=== PATIENT | female | born 1980 | race Caucasian/White ===

== ENCOUNTER → 2020-01-07 | Day surgery (SDC) | payer OTHER ==
[~2020-01-07] MED LIST: ALL DAY ALLERGY10 M3 PO; BENTYL 20 MG TA20 M1 PO; FLOVENT HFA 4444 MCG INH; LISINOPRIL10 MG PO; METFORMIN HCL500 M3 PO; PROBIOTIC1 EAC7 PO; SINGULAIR 10 MG10 M1 PO; TOPAMAX 25 MG T25 MG PO
--- NOTE | ~2020-01-07 | PROC ---
[address] [address] PROCEDURE REPORT Name: KATHERINE RASCON Room: [facility]#: [id number] Admission: 01/07/20 Attend Phys: Ayush Adan MD Discharge: Date of : 78 Report #: [id number] THIS REPORT FOR: //name// cc: Brigida Virk Ann FNPC ~ THIS REPORT FOR: //name// For GI report, please see Provation report in Perceptive 7 content. By: [facility] Staff GREGORIA /BLAIR
[2020-01-07 08:35] LABS: HEMATOCRIT 42.4 % (37.0-47.0); HEMOGLOBIN 14.6 gm/dL (12.0-15.0)
--- NOTE | 2020-01-07 12:52 | EKG ---
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1980 Requested By: Ayush Adan Order Number: [id number] Reading MD: Conrad Crowley Measurements Intervals [place] Rate: 101 P: 36 GA: 118 QRS: 16 QRSD: 89 T: 1 QT: 367 QTc: 476 Interpretive Statements Sinus tachycardia Borderline T abnormalities, inferior leads Baseline wander in lead(s) I,II,aVR No previous ECG available for comparison Electronically Signed On 01-07-2020 12:51:36 CDT by Conrad Crowley [email or web address] <ELECTRONICALLY SIGNED> By: Conrad Crowley MD, [facility] 01/07/20 1251 0833 0833 Conrad Crowley MD, [facility] /EPI
--- NOTE | 2020-01-08 14:07 | PATH ---
[address] [address] PATHOLOGY RPT PROCEDURE Name: KATHERINE GAVIN Room: [facility]#: [id number] Admission: 01/07/20 Date of : 78 Discharge: Report #: [id number] Path Case #: [id number] [facility] Accession Number: [id number] . 01 Material submitted: . PART A: esophagus - ESOPHAGEAL BIOPSY RULE OUT BARRETTS PART B: colon - RANDOM COLON BIOPSIES . 01 Clinical history: . Chronic diarrhea . 02 Diagnosis: A. Squamous and glandular mucosa, "esophageal biopsy rule out Alamo's": - Reflux esophagitis with reactive squamous and glandular mucosa. - There is no evidence of goblet cell metaplasia, dysplasia or malignancy. . B. Colonic mucosa, "random colon biopsies": - No obvious diagnostic changes. - There is no evidence of acute cryptitis, granulomas, adenomatous change changes of microscopic colitis or malignancy. . (SHA:mmsusannah; 01/08/2020) QL 01/08/2020 1351 Local . 02 Electronically signed: . Jonathon Dave MD, Pathologist NPI- [id number] . 01 Gross description: . A. The specimen is received in formalin, labeled "Katherine Gavin, esophageal biopsy, R/O Alamo's". Received is a segment of pale moffett soft tissue measuring 0.4 cm in maximum dimensions. The specimen is submitted entirely in cassette A1. . B. The specimen is received in formalin, labeled "Katherine Gavin, random colon biopsy". Received are multiple (greater than 10) segments of pale moffett soft tissue ranging in size from 0.2 to 0.5 cm in maximum dimensions. The specimen is submitted entirely in cassette B1. (CAA; 01/07/2020) QAC/QAC 01/07/2020 1637 Local . 02 Pathologist provided ICD-10: K21.0, K52.9 . 02 CPT . 916386, 825535 Specimen Comment: A courtesy copy of this report has been sent to [phone], [phone] [address] PATHOLOGY RPT PROCEDURE Name: KATHERINE GAVIN Room: [facility]#: [id number] Admission: 01/07/20 Date of : 78 Discharge: Report #: [id number] Path Case #: [id number] Specimen Comment: [id number] Specimen Comment: Report sent to / DR AYON Performed at: 01 [facility] [address] [id number] MD Yeison Ziegler MD Phone: [phone] Performed at: 02 [facility] [address] [id number] MD Eliseo Reynolds MD Phone: [phone]
== END | disposition home or self-care (01) ==
LOC: M.SUR 07:34
PROVIDERS: Internal Medicine Gastroenterology
DX: R10.30 Lower abdominal pain, unspecified (principal); R19.7 Diarrhea, unspecified; R12 Heartburn; K21.0 Gastro-esophageal reflux disease with esophagitis; K44.9 Diaphragmatic hernia without obstruction or gangrene; K22.8 Other specified diseases of esophagus; Z98.890 Other specified postprocedural states; Z79.899 Other long term (current) drug therapy; Z88.2 Allergy status to sulfonamides